=== PATIENT | female | born 1995 | race Caucasian/White ===

== ENCOUNTER 2016-12-09 14:51 | Emergency (ER) | payer OTHER ==
[~2016-12-09] VITALS: Ht 157.5 cm; Wt 69.1 kg
[2016-12-09 14:51] VITALS: BP 110/65; PULSE 79; RESP 24; O2SAT 97
--- NOTE | 2016-12-09 15:00 | ED.REPORT ---
HPI-Abd Pain F Under 40 Date of Service Dec 09, 2016 ED Provider: Vic Rodarte DO Patient is a 32 week 21 year old female who presents to the ED c/o LLQ abdominal pain and vomiting since 01:00 today. The patient also describes a associated left side back pain. Her vomit as a yellow, bilious fluid. Patient denies diarrhea or constipation. She was recently diagnosed with a UTI a few days ago at [facility] and has been prescribed Keflex. She denies every having any UTI-like symptoms. She returned to [facility] this morning complaining of abdominal pain and was discharged after "everything was normal". She went up to the [facility] today at which time retroperitoneal US was normal although she had a leukocytosis of ~15. She admits to having an abnormal vaginal discharge about one and half months ago. Nursing Notes Stated Complaint: LEFT FLANK PAIN Nursing Notes Reviewed: Yes Allergies: Coded Allergies: No Known Allergies (Unverified , 12/09/16) No Active Prescriptions or Reported Meds General Time Seen by MD: 14:57 Chief Complaint Abdominal pain Hx Obtained From: Patient Arrived By: Walk-in Sudden in Onset?: Yes Onset Occurred: 9 - 12 hours ago Symptom Duration: Since onset Location: : Diffuse Quality: Painful Severity: Current: Moderate Severity: Maximum: Moderate Recent Healthcare: No recent hospitalization, Recent doctor visit Past Medical History Past Medical History Limited history provided Adenopathy Past Surgical History T&A "Lymph node drainage" Smoking History Unknown if Ever Smoker Social History Alcohol Use: Denies alcohol use Ambulatory Status Independent Review of Systems Constitutional: Denies: Fever Respiratory: Denies: Non-productive cough, Shortness of breath Cardiovascular: Denies: Chest pain GI: Reports: Abdominal pain, Nausea, Vomiting Female: Reports: Musculoskeletal: Denies: Extremity pain Complete sys rev & neg: except as marked. Physical Exam Initial Vital Signs Vital Signs (First) Date Time Temp Pulse Resp B/P Pulse Ox O2 Delivery O2 Flow Rate FiO2 12/09/16 14:51 36.6 79 24 110/65 97 Room Air Initial VS: Reviewed, Vital signs normal Head / Eyes: Atraumatic, Normocephalic ENT: Mucous membranes moist, Conjunctiva normal, No scleral icterus Neck: Supple, Full range of motion Extremities: Vascular intact, Neuro intact Skin: Warm, Dry Neurologic: Alert, Oriented Psychiatric: Mood/affect normal, Behavior normal General/Constitutional: Awake, Alert, Cooperative Distress / Hydration: Positive: Distress moderate Appearance / Presentation: Positive: In pain, Uncomfortable Respiratory / Chest: Atraumatic, Breath sounds NL, Breath sounds = bilat, No respiratory distress Cardiovascular: Heart rate NL, Regular rhythm, Heart sounds NL, No gallop, No murmurs, No rubs Abdomen: Atraumatic, Soft, No guarding, No rebound Tenderness/Guarding/Rebound: Positive: Tender LLQ... (Moderate) Gravid uterus consistent with 32 week Back: Atraumatic, Full range of motion, Painless range of motion Flank / Spine / Paraspinal: Positive: Flank tender L Interpretation & Diagnostics Interpretation & Diagnostics: PROCEDURE: US OB PLACENTA EVALUATION LIMITED IMPRESSION: 1. Single live intrauterine . 2. Nonvisualization of the ovaries. No visualized cause of pain. Dictated by: Genesis Broussard M.D. on 12/09/2016 at 17:38 Approved by: Genesis Broussard M.D. on 12/09/2016 at 17:41 Lab Results Interpretation Test 12/09/16 16:16 Lactic Acid Level 0.7mmol/L (0.4-2.0) Lipase 33U/L (13-60) Re-Eval/Medical Decision Med Decision/Clinical Course Med Decision/Clinical Course: Persistent severe left-sided abdominal pain, concerned that could be acute or life-threatening pathology. Initial workup was performed in family , it is felt by [employer]PER[employer]ENT that this patient is not in active labor. I am highly suspicious of some unknown pathology, the differential diagnosis is broad. Pelvic ultrasound is performed in unremarkable, currently awaiting MRI of the abdomen and pelvis and further treatment and probable admission by [employer]. Re-Evaluation/Progress : Time of Eval: 17:16 Re-Evaluation/Progress Note: Discussed lab and radiology results with the patient. Consultation #1: Referral / Consult Name: Genesis Broussard MD Call Returned at: 15:27 4Th Grade Teacher: Agrees with eval, Agrees with plan Note: Case discussed with radiology. Discussed patients findings and appropriate testing for pelvis. Pelvic ultarsound is suggested with further MRI without contrast if US is negative. Consultation #2: Referral / Consult Name: Aileen Treadwell MD Call Returned at: 17:19 4Th Grade Teacher: Agrees with eval, Agrees with plan Note: Case discussed with Dr. Treadwell. Discussed the patient's exan findings and the need to admit. Agrees to re-evaluate after MRI is resulted. Counseled Regarding: Diagnosis, Lab results Discharge & Departure Primary Impression: Left flank pain Discharge Condition All VS Reviewed: Yes Condition: Stable Referrals: Natalia Temple (PCP) OTHER,PHYSICIAN (Family) Care Transferred to: Dr. Zuleta Care Transferred at: 18:00 Javier Attestation Portions of this note were transcribed by Gage Berg. I, Dr. Rodarte personally performed the history, physical exam and medical decision-making; I reviewed and confirmed the accuracy of the information in the transcribed note. Signed by: Javier Wu, 12/09 [Time]. copies to: Natalia Temple Timothy S DO Dec 09, 2016 15:00 Gage Zaidi Dec 09, 2016 15:20 TAMI BERG Dec 09, 2016 16:50
[2016-12-09] MEDS ORDERED: 0.9% Sodium Chloride 1,000 ML IV ONE (15:25)
[2016-12-09] MEDS: Ondansetron 2 mg/mL 2 mL Inj IVPUSH PRN ×4 (15:33→21:21)
--- NOTE | 2016-12-09 17:42 | DRSVH ---
PROCEDURE: US OB PLACENTA EVALUATION LIMITED INDICATIONS: llq pain OUTSIDE/PRIOR DATING DATA: Last menstrual period (LMP): Unknown. LMP-based estimated date of delivery (MEENAKSHI): Unknown. First dating scan (date and location): Unknown. Estimated date of delivery (MEENAKSHI) from first dating scan: Unknown. TECHNIQUE: Real-time scanning was performed of the fetus, with image documentation. COMPARISON: None. FINDINGS: A single living intrauterine gestation is present. Presentation: Vertex. Placenta: Placental position is anterior, without previa. Amniotic fluid index: 20 cm, normal range is 5-24 cm. heart rate: 154 beats per minute. Maternal cervical canal: 3 cm long. The ovaries are not visualized. IMPRESSION: 1. Single live intrauterine . 2. Nonvisualization of the ovaries. No visualized cause of pain. Dictated by: Genesis Broussard M.D. on 12/09/2016 at 17:38 Approved by: Genesis Broussard M.D. on 12/09/2016 at 17:41
--- NOTE | 2016-12-09 18:50 | DRSVH ---
PROCEDURE: MRI ABDOMEN WITHOUT CONTRAST ([id number]) INDICATIONS: Left flank pain, 32 wks TECHNIQUE: Axial 2-D FLASH in- [id number], axial T1 weighted with fat suppression. Coronal T2 weighted COMPARISON: [facility], MR, MR PELVIS WO CON, 12/09/2016, 18:23. [facility], US, US RENAL, 12/09/2016, 12:12. FINDINGS: Image quality: Excellent. There is moderate left hydronephrosis. No discrete intraluminal filling defects seen within the visua lized portions of the left renal collecting system and proximal left ureter. Mild right hydronephrosis. Probable 5 mm right hepatic cysts on image 9 although technically nonspecific. Liver, biliary tree, g allbladder, pancreas, spleen, adrenal glands are grossly unremarkable. Partially visualized intrauter ine gestation. IMPRESSION: Moderate left and mild right hydronephrosis. No intraluminal filling defects identified as above. Dictated by: Guy Arzola M.D. on 12/09/2016 at 18:42 Approved by: Guy Arzola M.D. on 12/09/2016 at 18:48
--- NOTE | 2016-12-09 18:57 | DRSVH ---
PROCEDURE: MRI PELVIS WITHOUT CONTRAST ([id number]) INDICATIONS: LEFT FLANK PAIN, 32 WEEKS TECHNIQUE: Noncontrast coronal, axial, and sagittal HASTE, axial HASTE with fat saturation, axial 2-D FLASH in- and [id number], axial 2-D time of flight, axial diffusion and ADC from the kidneys to the symphysis . COMPARISON: [facility], MR, MR ABD WO CON, 12/09/2016, 18:01. FINDINGS: Image quality: Excellent. Bowel: No pathologic free fluid. Visualized small and large bowel loops are normal in caliber. No asymmetric soft tissue edema in the right lower quadrant to suggest acute appendicitis. Genitourinary system: There is moderate dilatation of the left ureter, which demonstrates abrupt tra nsition point in the left pelvis, as it courses between the intrauterine gestation, and the left psoa s muscle image 15 series 4, suggestive of mass effect related to . No discrete intraluminal filling defect is identified. Kidneys are normal in size. Bladder wall thickness is normal. Fetus: A single fetus is noted in vertex presentation. Soft tissues: No ventral or inguinal hernias. Bones: Marrow has normal overall signal. IMPRESSION: Moderate left hydronephrosis and hydroureter with abrupt transition point in the left pelvis, presuma sarahy due to related mass effect as detailed above. No definite intraluminal filling defects defects seen. Dictated by: Guy Arzola M.D. on 12/09/2016 at 18:48 Approved by: Guy Arzola M.D. on 12/09/2016 at 18:56
[2016-12-09 19:23] VITALS: BP 104/61; PULSE 62; RESP 20; O2SAT 100
--- NOTE | 2016-12-09 20:53 | OUT PROG ---
[address] [address] PROGRESS NOTE PATIENT: OLIVIA ADORNO : 1995 MR#: [id number] ADMIT: 12/09/2016 JOB ID: [id number] DATE: 12/09/2016 SUBJECTIVE: This is a 21-year-old female, 1, para 0, at 32 weeks 3 days. Detailed history, see my in note with her triage visit. In the summary, this 21-year-old female, 1, para 0, at 32 weeks 3 days presents to the [facility] for left flank pain. She presented to her routine OB care physician at [facility] on for left flank pain. Was sent home with Keflex q.6 h. Pain deteriorated. She went back to [facility] for evaluation and pelvic ultrasound was performed and there was no significant abnormal finding and sent home for continued antibiotics. She presented to us this morning for deteriorating pain with nausea, vomiting. No diarrhea, no fever, no vaginal bleeding. During the evaluation at the triage, she has stable vitals. No fever. Her abdomen is soft. Occasional contractions can be felt. Nontender uterus. Uterus can completely relax. On cervical examination, the cervix was closed and long. The kidney ultrasound repeated and still only mild hydronephrosis, but the patient's pain is severe. She was sent to the ED for further evaluation. Pelvis MRI has the finding of a moderate left hydronephrosis and hydroureter with rapid transition point in the left pelvis, presumably due to -related mass effect. No definite intraluminal filling defects seen. Otherwise, no other abnormal findings, but her pain continuous to be severe. Based on this evaluation, at this time, I could not be sure of the cause of her acute left flank pain. ASSESSMENT AND PLAN: A 21-year-old female, 1, para 0, at 32 weeks 3 days. Patient of [facility] and came in for left flank pain. For the differential diagnosis including kidney stone, hydroureter, pyelonephrosis, cannot rule out other cause of severe abdominal pain. There are no symptoms or signs of at this time, no signs or signs of placental abruption. I discussed with the on-call boiler installer at [facility] and discussed about the situation. Recommended transferring the patient down to General acute hospital for further evaluation and management due to: 1. Continuity of care. 2. Either the situation of the left flank pain may cause or make delivery necessary and there will be a better choice for higher level nursery care. SERAFIN
[2016-12-09 21:22] VITALS: BP 124/76; PULSE 83; RESP 16; O2SAT 99
== END 2016-12-09 21:23 | disposition short-term general hospital (02) ==
LOC: SED 14:51
DX: O26.893 Other specified pregnancy related conditions, third trimester (principal); R10.32 Left lower quadrant pain; O21.8 Other vomiting complicating pregnancy; Z3A.32 32 weeks gestation of pregnancy
CPT/HCPCS: 36415; 72195; 74181; 76815; 83605; 83690; 96361; 96374; 96375; 96376; 99285; J2270; J2405; J7030